=== PATIENT | female | born 1965 | race Caucasian/White ===

== ENCOUNTER → 2019-11-15 07:53 | Outpatient (CLI) | payer OTHER, SELFPAY ==
--- NOTE | ~2019-11-15 | MR_ITS ---
EXAMINATION: MR cervical spine wo con DATE: 11/15/2019 08:56 INDICATION: Neck pain. TECHNIQUE: Magnetic resonance imaging (MRI) of the cervical spine was performed without intravenous c ontrast. Sequences included sagittal T2-weighted FSE, sagittal STIR FSE, sagittal T1-weighted FSE, ax ial MERGE, and axial T2-weighted FSE. COMPARISON: None FINDINGS: There is 2 mm anterolisthesis of C4 on C5 and 2 mm retrolisthesis of C5 on C6 and C6 on C7. Vertebral body heights are normal. There is mildly decreased disc height at C4-C5 and severely decre ased disc height at C5-C6 and C6-C7. The spinal cord signal intensity is normal. The following disc l evels are specifically discussed: C2-C3: The disc does not extend beyond the endplate margin. There is mild left uncovertebral joint os teoarthritis. There is mild bilateral facet joint osteoarthritis. There is no neural foraminal stenos is. There is no central canal stenosis. C3-C4: The disc is mildly bulging. There is mild left uncovertebral joint osteoarthritis. There is mi ld right and moderate left facet joint osteoarthritis. There is mild left neural foraminal stenosis. There is no central canal stenosis. C4-C5: The disc does not extend beyond the endplate margin. There is mild bilateral uncovertebral cathy nt osteoarthritis. There is moderate right and severe left facet joint osteoarthritis. There is mild bilateral neural foraminal stenosis. There is no central canal stenosis. C5-C6: The disc is bulging. There is severe bilateral uncovertebral joint osteoarthritis. There is mi ld bilateral facet joint osteoarthritis. There is moderate bilateral neural foraminal stenosis. There is moderate central canal stenosis with ventral and dorsal indentation of spinal cord. C6-C7: The disc is bulging. There is severe bilateral uncovertebral joint osteoarthritis. There is mi ld right and moderate left facet joint osteoarthritis. There is mild right and moderate left neural f oraminal stenosis. There is mild central canal stenosis. C7-T1: The disc is mildly bulging. There is moderate right and mild left uncovertebral joint osteoart hritis. There is moderate bilateral facet joint osteoarthritis. There is moderate right and mild left neural foraminal stenosis. There is no central canal stenosis. IMPRESSION: 1. Severe cervical spondylosis. Reviewed, dictated and finalized at location A.
--- NOTE | ~2019-11-15 | MR_ITS ---
EXAMINATION: MR lumbar spine wo con DATE: 11/15/2019 08:56 INDICATION: Low back pain. TECHNIQUE: Magnetic resonance imaging (MRI) of the lumbar spine was performed without intravenous con trast. Sequences included sagittal T2-weighted FSE, sagittal STIR FSE, sagittal T1-weighted FSE, and axial T2-weighted FSE. COMPARISON: None FINDINGS: There is 5 degrees dextrocurvature of lumbar spine. Vertebral body heights are normal. Ther e are changes of posterior fusion procedure from L4 to S1 with pedicle screws. There are changes of a nterior fusion procedures at L4-L5 and L5-S1 with interbody devices. There is moderately decreased di sc height at L3-L4. The distal spinal cord signal intensity is normal. The conus medullaris is at T12 . The following disc levels are specifically discussed: L1-L2: The disc does not extend beyond the endplate margin. There is mild bilateral facet joint osteo arthritis. There is no neural foraminal stenosis. There is no central canal stenosis. L2-L3: The disc does not extend beyond the endplate margin. There is mild bilateral facet joint osteo arthritis. There is no neural foraminal stenosis. There is no central canal stenosis. L3-L4: The disc is bulging and has an annular fissure. There is severe bilateral facet joint osteoart hritis. There is mild bilateral neural foraminal stenosis. There is mild central canal stenosis. L4-L5: There is moderate bilateral facet joint osteoarthritis. There is mild right neural foraminal s tenosis. There is no central canal stenosis. L5-S1: There is mild bilateral facet joint osteoarthritis. There is mild right neural foraminal steno sis. There is no central canal stenosis. IMPRESSION: 1. Moderate spondylosis at L3-L4 and mild spondylosis at other levels. 2. Anterior and posterior fusion procedures from L4 to S1. Reviewed, dictated and finalized at location A.
== END ==
PROVIDERS: PCP Internal Medicine; Visit Provider Physician Assistant Medical
DX: M47.892 Other spondylosis, cervical region (principal); M47.896 Other spondylosis, lumbar region; Z98.1 Arthrodesis status
CPT/HCPCS: 72141; 72148

== ENCOUNTER → 2020-03-10 07:42 | Outpatient (CLI) | payer OTHER, SELFPAY ==
--- NOTE | ~2020-03-10 | US_ITS ---
US right upper quadrant INDICATION: Abdominal pain with nausea. Weight loss. PROCEDURE: Realtime right upper abdominal ultrasound. COMPARISON: No prior studies for comparison. FINDINGS: The pancreas is normal without focal mass or pancreatic ductal dilation. Liver echotexture is normal without focal mass or intrahepatic biliary dilatation. There is normal directional flow i n the portal vein. The gallbladder is normal without stones, gallbladder wall thickening or pericholecystic fluid. Comm on bile duct measures 4 mm. No sonographic Baker's sign. Right renal echotexture is normal. Right k idney measures 10.9 cm in length. IMPRESSION: 1: Normal limited abdominal ultrasound. Reviewed, dictated and finalized at location A. EHOLD PERSONAL ASSISTANT
== END ==
PROVIDERS: PCP Internal Medicine; Visit Provider Internal Medicine
DX: R10.9 Unspecified abdominal pain (principal); R11.0 Nausea; R63.4 Abnormal weight loss
CPT/HCPCS: 76705

== ENCOUNTER → 2020-05-09 13:40 | Outpatient (CLI) | payer OTHER, SELFPAY ==
--- NOTE | ~2020-05-09 | CT_ITS ---
EXAMINATION: CT abdomen pelvis w con DATE: 05/09/2020 14:18 INDICATION: Bilateral lower abdominal pain, weight loss TECHNIQUE: Computed tomography (CT) of the abdomen and pelvis was performed with 100 cc Omnipaque 350 intravenous contrast. Automated exposure control and iterative reconstruction technique were employe d. Exam dose: 201.97 mGy-cm total exam DLP. COMPARISON: 07/23/2015 CT abdomen pelvis FINDINGS: The lung bases are clear of infiltrate or consolidation. Normal heart size. No pericardial or pleural effusion. Small sliding hiatal hernia. The liver, gallbladder, bile ducts, spleen, pancreas and pancreatic duct are normal in appearance. Normal morphology of the adrenal glands. No renal mass lesion. No urinary tract calculus or hydroureteronephrosis. The urinary bladder is dist ended but unremarkable, without apparent intraluminal filling defect or bladder wall thickening. The uterus and adnexal areas are unremarkable. Normal caliber of the abdominal aorta. No intraperitoneal or retroperitoneal or pelvic mass lesion or adenopathy or ascites. No bowel obstruction, bowel wall thickening, pneumatosis or intraperitoneal free air is detected. There are pedicle screws and francisco javier on the right from L4 to S1 and interbody spinal fusion at L4-5 and L 5-S1. Moderately severe degenerative disc disease and minimal anterolisthesis at L3-4. IMPRESSION: Small sliding hiatal hernia Status post right posterior L4-S1 and interbody L4-5 and L5-S1 spinal fusion Moderately severe degenerative disc disease and minimal anterolisthesis at L3-4 Reviewed, dictated and finalized at Location A. Reviewed, dictated and finalized at location A. LACER
== END ==
PROVIDERS: PCP Internal Medicine; Visit Provider Internal Medicine Hematology & Oncology
DX: R10.32 Left lower quadrant pain (principal); K44.9 Diaphragmatic hernia without obstruction or gangrene; Z98.1 Arthrodesis status; M51.36 Other intervertebral disc degeneration, lumbar region
CPT/HCPCS: 74177; Q9967

== ENCOUNTER → 2020-06-17 14:13 | Outpatient (CLI) | payer OTHER, SELFPAY ==
--- NOTE | ~2020-06-17 | XR_ITS ---
EXAMINATION: XR ankle RT min 3V DATE: 06/17/2020 15:04 INDICATION: Right ankle pain. TECHNIQUE: 4 views of right ankle were obtained. COMPARISON: None. FINDINGS: Bone alignment is normal. No fracture. Joint spaces are normal. There are enthesophytes at the posterior and plantar aspects of calcaneal tuberosity. IMPRESSION: 1. No fracture. Reviewed, dictated and finalized at location A. IMPRESSION: 1. No fracture.
--- NOTE | ~2020-06-17 | XR_ITS ---
EXAMINATION: XR foot RT min 3V DATE: 06/17/2020 15:04 INDICATION: Right foot pain. TECHNIQUE: 4 views of right foot with weightbearing were obtained. COMPARISON: None. FINDINGS: Bone alignment is normal. No fracture. Joint spaces are well maintained. There are enthesop hytes at the posterior and plantar aspects of calcaneal tuberosity. IMPRESSION: 1. No fracture. Reviewed, dictated and finalized at location A. IMPRESSION: 1. No fracture.
== END ==
PROVIDERS: PCP Internal Medicine
DX: M25.571 Pain in right ankle and joints of right foot (principal); M79.671 Pain in right foot
CPT/HCPCS: 73610; 73630

== ENCOUNTER → 2020-07-18 15:11 | Outpatient (CLI) | payer OTHER, SELFPAY ==
--- NOTE | ~2020-07-18 | US_ITS ---
EXAMINATION: US thyroid DATE: 07/18/2020 15:42 INDICATION: Nontoxic goiter. TECHNIQUE: Multiple ultrasound images of the thyroid were obtained. COMPARISON: None. FINDINGS: The right thyroid lobe measures 5.1 x 1.3 x 1.0 cm. The left thyroid lobe measures 3.2 x 0.7 x 1.0 c m. In the right thyroid lobe, there is a 6 mm solid, hypoechoic, [id number]-[id number] nodule with lobulat ed margin without echogenic foci (TI-RADS TR4). IMPRESSION: 1. Small thyroid nodule, likely not clinically significant. No follow-up is needed. Reviewed, dictated and finalized at location A. IMPRESSION: 1. Small thyroid nodule, likely not clinically significant. No follow-up is nee ded.
== END ==
PROVIDERS: PCP Internal Medicine; Visit Provider Internal Medicine Endocrinology, Diabetes & Metabolism
DX: E04.1 Nontoxic single thyroid nodule (principal)
CPT/HCPCS: 76536

== ENCOUNTER → 2020-09-20 08:15 | Outpatient (CLI) | payer OTHER, SELFPAY ==
--- NOTE | ~2020-09-20 | US_ITS ---
EXAMINATION: US right upper quadrant DATE: 09/20/2020 08:34 INDICATION: Abnormal liver function tests. Weight loss. TECHNIQUE: Multiple grayscale and Doppler ultrasound images of the abdomen were obtained. COMPARISON: CT abdomen and pelvis 05/09/2020 FINDINGS: The visualized portions of the head, body, and tail of the pancreas are normal. The liver i s normal without focal lesion. No liver surface nodularity. There is normal flow in main portal vein. The gallbladder is normal in size. No gallstones or gallbladder wall thickening. There was no sonogr aphic Baker sign. The common duct is normal and measures 2 mm. IMPRESSION: 1. Normal right upper quadrant ultrasound. Reviewed, dictated and finalized at location A.
== END ==
DX: R63.4 Abnormal weight loss (principal); R14.0 Abdominal distension (gaseous)
CPT/HCPCS: 76705

== ENCOUNTER → 2020-12-12 13:44 | Outpatient (CLI) | payer OTHER, SELFPAY ==
--- NOTE | ~2020-12-12 | MR_ITS ---
EXAMINATION: MR foot RT wo con, MR ankle RT wo con DATE: 12/12/2020 14:45 INDICATION: Achilles tendinitis TECHNIQUE: 1. Magnetic resonance imaging (MRI) of the right ankle was performed without intravenous contrast. Se quences included sagittal, coronal, and axial proton-density weighted fast spin echo without and with fat saturation. 2. MRI of the right foot was performed without intravenous contrast. Sequences included sagittal T1-w eighted FSE, sagittal fluid sensitive FSE STIR, coronal PD-weighted FS FSE, coronal T1-weighted FSE, axial PD-weighted FS FSE, and axial PD-weighted FSE. COMPARISON: Right foot and ankle radiographs dated 06/17/2020 FINDINGS: Medial ankle ligaments: Deep and superficial deltoid ligaments as well as the spring ligament are normal. Lateral ankle ligaments: The anterior and posterior inferior tibiofibular ligaments are normal. The anterior talofibular ligam ent appears attenuated without surrounding edema suggesting sequela of chronic sprain. Also consisten t with chronic sprain is a small osteophyte at the fibular insertion of the calcaneofibular ligament. The posterior talofibular ligament is normal. Tendons: Enthesopathic ossicle at the distalmost Achilles tendon and small enthesophyte at its calcaneal inser tion. The Achilles tendon is otherwise normal with no significant tendinosis, evident tear or periten dinitis. The peroneus longus and brevis tendons are normal. The myotendinous junction of the peroneus brevis is low-lying extending approximately 1 cm below the level of the retromalleolar groove. The t ibialis anterior and extensor hallucis longus and extensor digitorum longus tendons are normal. The t ibialis posterior, flexor digitorum longus and flexor hallucis longus tendons are normal. Plantar fascia: Plantar aponeurosis is normal. Bones/other: Bone alignment is normal. Normal marrow signal throughout the right foot and ankle. No fracture, reac tive edema or pathologic marrow replacing process. Mild osteoarthritis at the first metatarsophalange al joint and a few of the tarsal metatarsal and interphalangeal joints. No erosions to suggest inflam matory arthritis. Lisfranc ligament complex is normal. Collateral ligament complex at the metatarsoph alangeal and interphalangeal joints are normal. Intrinsic musculature of the foot is normal. Fluid: Physiologic amount fluid in the joint spaces. No tenosynovitis, bursitis or other abnormal fluid haven ections. IMPRESSION: 1. Small enthesopathic ossicle at the distalmost aspect of the otherwise normal Achilles tendon. No e vident tendinosis, tear or peritendinitis. 2. Chronic lateral ankle sprain with attenuation of the anterior talofibular ligament and small heter otopic osteophyte at the fibular insertion of the calcaneofibular ligament. 3. Mild polyarticular osteoarthritis in the mid and forefoot. Reviewed, dictated and finalized at location A. IMPRESSION: 1. Small enthesopathic ossicle at the distalmost aspect of the otherwise normal Achilles tendon. No evident tendinosis, tear or peritendinitis. 2. Chronic lateral ankle sprain with attenuation of the anterior talofibular li gament and small heterotopic osteophyte at the fibular insertion of the calcane ofibular ligament. 3. Mild polyarticular osteoarthritis in the mid and forefoot.
== END ==
PROVIDERS: PCP Internal Medicine
DX: M76.61 Achilles tendinitis, right leg (principal); M19.071 Primary osteoarthritis, right ankle and foot
CPT/HCPCS: 73718; 73721

== ENCOUNTER → 2021-01-28 10:26 | Outpatient (CLI) | payer OTHER, SELFPAY ==
--- NOTE | ~2021-01-28 | DEXA_ITS ---
Bone Density Report Name: Kassi Marley Age: 55 Sex: Female Ethnicity: White Date of : 1965 Indication: postmenopausal; screening for osteoporosis; height loss; inflammatory bowel disease; Referring Provider: Carlos, Lorraine Rodas Study: Bone densitometry was performed. Exam Date: January 28, 2021 Accession number: [id number] Bone Density: Region BMD T-score Z-score Classification Total Forearm (Left) 0.478 -1.7 -0.7 1/3 Forearm (Left) 0.626 -1.0 0.0 UD Forearm (Left) 0.310 -2.0 -1.3 World Health Organization criteria for BMD impression classify patients as: Normal (T-score at or above -1.0), Osteopenia (T-score between -1.0 and -2.5), or Osteoporosis (T-score at or below -2.5). Clinical Information Provided by Patient: Has used the following medications: Vitamin D, Synthroid Has the following medical conditions: Inflammatory bowel diseases, Pt states she never had a period Patient maximum height was 66.0 Menopause Age: 36 No regular weight bearing exercise Does not regularly consume dairy products Number of children 3 Missed period for more than 6 months in a row Impression: The patient has normal bone mass. Discussion: BONE DENSITY IS ABOVE THE MINIMUM DESIRABLE LEVEL AT ALL SKELETAL SITES TESTED. This patient?s bone mineral density is above the minimum desirable level (T-score -1.0 or better) at all sites measured. The patient should follow a healthful lifestyle (good nutrition with adequate calcium and vitamin D, and appropriate weight-bearing exercise). Follow-Up: Consider repeating this study in 5 years or sooner if there is some new clinical indication. Reported by: [facility] on 01/28/2021 11:21:00 AM. Reviewed, dictated and finalized at location Puma MARTINEZ
== END ==
PROVIDERS: PCP Internal Medicine; Visit Provider Internal Medicine Endocrinology, Diabetes & Metabolism
DX: N95.9 Unspecified menopausal and perimenopausal disorder (principal); Z78.0 Asymptomatic menopausal state
CPT/HCPCS: 77081

== ENCOUNTER → 2021-05-16 08:17 | Outpatient (CLI) | payer OTHER, SELFPAY ==
--- NOTE | ~2021-05-16 | US_ITS ---
US right upper quadrant INDICATION: Abdomen pain. Elevated liver function tests. PROCEDURE: Realtime right upper abdominal ultrasound. COMPARISON: No prior studies for comparison. FINDINGS: The pancreas is normal without focal mass or pancreatic ductal dilation. Liver echotexture is normal without focal mass or intrahepatic biliary dilatation. There is normal directional flow i n the portal vein. The gallbladder is normal without stones, gallbladder wall thickening or pericholecystic fluid. Comm on bile duct measures 4 mm. No sonographic Baker's sign. IMPRESSION: 1: Normal limited abdominal ultrasound. Reviewed, dictated and finalized at location A. RANS' COUNSELOR
== END ==
PROVIDERS: PCP Internal Medicine; Visit Provider Internal Medicine
DX: R10.9 Unspecified abdominal pain (principal); R94.5 Abnormal results of liver function studies
CPT/HCPCS: 76705

== ENCOUNTER → 2021-11-26 13:53 | Outpatient (CLI) | payer OTHER, SELFPAY ==
--- NOTE | ~2021-11-26 | US_ITS ---
EXAMINATION: US thyroid DATE: 11/26/2021 14:11 INDICATION: Nontoxic single thyroid nodule. TECHNIQUE: Multiple ultrasound images of the thyroid were obtained. COMPARISON: Ultrasound 07/18/2020 FINDINGS: The right thyroid lobe measures 4.0 x 0.9 x 1.1 cm. The left thyroid lobe measures 3.0 x 0.8 x 1.0 c m. There are multiple nodules in the thyroid measuring up to 2 mm. IMPRESSION: 1. Small thyroid nodules, likely not clinically significant. No follow-up is needed. Reviewed, dictated and finalized at location A. IMPRESSION: 1. Small thyroid nodules, likely not clinically significant. No follow-up is ne eded.
== END ==
PROVIDERS: PCP Physician Assistant Medical; Visit Provider Nurse Practitioner
DX: E04.2 Nontoxic multinodular goiter (principal)
CPT/HCPCS: 76536

== ENCOUNTER 2023-05-26 14:44 | Outpatient (CLI) | payer OTHER, SELFPAY ==
--- NOTE | ~2023-05-26 | US_ITS ---
EXAMINATION: US venous doppler [facility] DATE: 05/26/2023 15:08 INDICATION: Left lower limb localized swelling. TECHNIQUE: Grayscale ultrasound images without and with compression and Doppler ultrasound images of the left lower extremity veins were obtained. COMPARISON: None. FINDINGS: The visualized portions of left common femoral vein, profunda (deep) femoral vein, femoral vein, popl iteal vein, peroneal veins, posterior tibial veins, and greater saphenous vein outflow are patent. IMPRESSION: 1. No deep venous thrombosis. Reviewed, dictated and finalized at location A.
== END 2023-05-26 14:45 ==
LOC: MICIMG 14:45
PROVIDERS: PCP Internal Medicine Endocrinology, Diabetes & Metabolism; Visit Provider Internal Medicine Endocrinology, Diabetes & Metabolism
DX: I83.90 Asymptomatic varicose veins of unspecified lower extremity (principal); R60.0 Localized edema
CPT/HCPCS: 93971

== ENCOUNTER 2023-06-21 15:45 | Outpatient (CLI) | payer OTHER, SELFPAY ==
--- NOTE | ~2023-06-21 | US_ITS ---
US thyroid INDICATION: Nontoxic goiter TECHNIQUE: Real-time sonographic images of the thyroid gland were obtained. COMPARISON: No prior studies for comparison. FINDINGS: The right thyroid lobe measures 3.6 x 1 x 1.1 cm. The left thyroid lobe measures 3 x 0.6 x 1.1 cm. There is normal echotexture and echogenicity throughout the thyroid gland. No discrete nodul es identified. Increased vascular flow is present. IMPRESSION: 1. Heterogeneous atrophic hypervascular thyroid gland suggesting thyroiditis. No discrete mass. Reviewed, dictated and finalized at location A.
== END 2023-06-21 15:46 ==
PROVIDERS: PCP Internal Medicine Endocrinology, Diabetes & Metabolism; Visit Provider Internal Medicine Endocrinology, Diabetes & Metabolism
DX: E04.9 Nontoxic goiter, unspecified (principal)
CPT/HCPCS: 76536

== ENCOUNTER 2023-07-18 14:12 | Outpatient (CLI) | payer OTHER, SELFPAY ==
--- NOTE | ~2023-07-18 | MR_ITS ---
EXAMINATION: MR cervical spine wo con DATE: 07/18/2023 14:53 INDICATION: Neck pain. TECHNIQUE: Magnetic resonance imaging (MRI) of the cervical spine was performed without intravenous c ontrast. COMPARISON: Cervical spine MRI 11/15/2019, radiographs 06/28/2023 FINDINGS: There is 6 degrees dextrocurvature of the cervicothoracic spine. There is 2 mm anterolisthe sis of C4 on C5 and 2 mm retrolisthesis of C5 on C6 and C6 on C7. There is kyphosis of lower cervical spine. Vertebral body heights are normal. There is severely decreased disc height at C5-C6 and C6-C7 . The spinal cord signal intensity is normal. The following disc levels are specifically discussed: C2-C3: The disc does not extend beyond the endplate margin. There is no uncovertebral joint osteoarth ritis. There is no facet joint osteoarthritis. There is no neural foraminal stenosis. There is no davonte tral canal stenosis. C3-C4: There is a central protrusion. There is mild right uncovertebral joint osteoarthritis. There i s severe bilateral facet joint osteoarthritis. There is mild bilateral neural foraminal stenosis. The re is no central canal stenosis. C4-C5: The disc does not extend beyond the endplate margin. There is mild bilateral uncovertebral cathy nt osteoarthritis. There is moderate right and severe left facet joint osteoarthritis. There is mild left neural foraminal stenosis. There is no central canal stenosis. C5-C6: The disc is bulging. There is severe bilateral uncovertebral joint osteoarthritis. There is mi ld bilateral facet joint osteoarthritis. There is moderate bilateral neural foraminal stenosis. There is moderate central canal stenosis with ventral and dorsal indentation of the spinal cord. C6-C7: The disc is bulging. There is severe bilateral uncovertebral joint osteoarthritis. There is se mk bilateral facet joint osteoarthritis. There is moderate bilateral neural foraminal stenosis. The re is mild central canal stenosis with ventral indentation of the spinal cord. C7-T1: There is a central protrusion. There is severe right and mild left uncovertebral joint osteoar thritis. There is severe right and moderate left facet joint osteoarthritis. There is moderate right and mild left neural foraminal stenosis. There is no central canal stenosis. IMPRESSION: 1. Severe cervical spondylosis, stable from 11/15/2019. Reviewed, dictated and finalized at location A.
== END 2023-07-18 14:13 ==
LOC: GOSHIMG 14:13
PROVIDERS: PCP Nurse Practitioner Family; Visit Provider Nurse Practitioner Family
DX: R20.0 Anesthesia of skin (principal); R20.2 Paresthesia of skin; M47.22 Other spondylosis with radiculopathy, cervical region
CPT/HCPCS: 72141

== ENCOUNTER 2023-08-12 13:40 | Outpatient (CLI) | payer OTHER, SELFPAY ==
--- NOTE | ~2023-08-12 | CT_ITS ---
EXAMINATION: CT cervical spine wo con DATE: 08/12/2023 14:00 INDICATION: Neck pain. Cervical myelopathy. TECHNIQUE: Computed tomography (CT) of the cervical spine was performed without intravenous contrast. Automated exposure control and iterative reconstruction technique were employed. The dose-length pro duct was 136.42 mGy-cm. COMPARISON: Cervical spine MRI 07/18/2023 FINDINGS: There is 3 degrees dextrocurvature of cervical spine. There is 2 mm anterolisthesis of C4 o n C5 and 2 mm retrolisthesis of C5 on C6 and C6 on C7. Vertebral body heights are normal. C1 ring is ununited posteriorly, a normal variant. There is mildly decreased disc height at C4-C5 and severely d ecreased disc height at C5-C6 and C6-C7. The following disc levels are specifically discussed: C2-C3: There is mild left uncovertebral joint osteoarthritis. There is mild bilateral facet joint ost eoarthritis. There is no neural foraminal stenosis. There is no central canal stenosis. C3-C4: There is mild right uncovertebral joint osteoarthritis. There is severe bilateral facet joint osteoarthritis. There is mild bilateral neural foraminal stenosis. There is mild central canal stenos is. C4-C5: There is mild bilateral uncovertebral joint osteoarthritis. There is severe bilateral facet carmelo int osteoarthritis. There is mild bilateral neural foraminal stenosis. There is no central canal sten osis. C5-C6: There is severe bilateral uncovertebral joint osteoarthritis. There is moderate bilateral face t joint osteoarthritis. There is mild right and moderate left neural foraminal stenosis. There is mil d central canal stenosis. C6-C7: There is severe bilateral uncovertebral joint osteoarthritis. There is severe bilateral facet joint osteoarthritis. There is mild bilateral neural foraminal stenosis. There is mild central canal stenosis. C7-T1: There is severe right and mild left uncovertebral joint osteoarthritis. There is severe right and moderate left facet joint osteoarthritis. There is moderate right and mild left neural foraminal stenosis. There is no central canal stenosis. IMPRESSION: 1. Severe cervical spondylosis. Reviewed, dictated and finalized at location E.
== END 2023-08-12 13:41 ==
LOC: GOSHIMG 13:43
PROVIDERS: PCP Nurse Practitioner Family; Visit Provider Nurse Practitioner Acute Care
DX: M43.02 Spondylolysis, cervical region (principal)
CPT/HCPCS: 72125

== ENCOUNTER 2024-07-31 14:14 | Outpatient (CLI) | payer OTHER, SELFPAY ==
--- NOTE | ~2024-07-31 | US_ITS ---
US thyroid INDICATION: Nontoxic goiter. Difficulty swallowing. TECHNIQUE: Real-time sonographic images of the thyroid gland were obtained. COMPARISON: No prior studies for comparison. FINDINGS: The right thyroid lobe measures 3.6 x 1 x 1.1 cm. The left thyroid lobe measures 3 x 1.1 x 0.6 cm. There is normal echotexture and echogenicity throughout the thyroid gland. No discrete nodul es identified. Increased vascular flow is present. IMPRESSION: 1. Normal thyroid without discrete nodule. There is increased vascularity. Reviewed, dictated and finalized at location B.
== END 2024-07-31 14:15 | disposition home or self-care (01) ==
PROVIDERS: PCP Internal Medicine Endocrinology, Diabetes & Metabolism; Visit Provider Internal Medicine Endocrinology, Diabetes & Metabolism
DX: E04.9 Nontoxic goiter, unspecified (principal)
CPT/HCPCS: 76536